=== PATIENT | male | born 1945 | race Two or more races ===

== ENCOUNTER 2018-10-01 10:07 | Emergency (ER) | payer MEDICARE, BC ==
[2018-10-01] MEDS ORDERED: Acetaminophen/HYDROcodone 325-5 MG Tab PO ONE (10:08)
[2018-10-01] MEDS ORDERED: Ketorolac 30 MG/ML SDV IM ONE (10:42)
[2018-10-01] MEDS ORDERED: Morphine 4 MG/ML Syringe IM ONE (10:43)
[2018-10-01] MEDS ORDERED: methylPREDNISolone Sodium Succinate 125 MG/2 ML SDV IM ONE (10:43)
--- NOTE | 2018-10-01 11:00 | EDM.PDOC ---
ED HPI GENERAL MEDICAL PROBLEM - General Stated Complaint: L SHOULDER PAIN Time Seen by Provider: 10/01/18 10:20 Source of Information: Reports: Patient History Limitations: Reports: No Limitations - History of Present Illness INITIAL COMMENTS - FREE TEXT/NARRATIVE: c/o L shoulder pain pain x 2m, saw ortho at [facility] and given an injection 3w ago which helped with pain for 1w, currently not taking anything for pain says he cannot take APAP d/t hep C has a swollen proximal L clavicle which he says is new says pain starts in the posterior shoulder just below the joint line and then wraps around the joint line anteriorly Left Shoulder Pain Score (Numeric/FACES): 10 - Related Data Allergies Allergy/AdvReac Type Severity Reaction Status Date / Time Penicillins Allergy Hives Verified 10/01/18 11:08 Home Meds: Home Meds Gabapentin [Neurontin] 100 mg PO TID #21 capsule 10/01/18 [Rx] ED ROS GENERAL - Review of Systems Review Of Systems: See Below Constitutional: Reports: No Symptoms HEENT: Reports: No Symptoms Respiratory: Reports: No Symptoms Cardiovascular: Reports: No Symptoms Endocrine: Reports: No Symptoms GI/Abdominal: Reports: No Symptoms : Reports: No Symptoms Musculoskeletal: Reports: Shoulder Pain Skin: Reports: No Symptoms Neurological: Reports: No Symptoms Psychiatric: Reports: No Symptoms Hematologic/Lymphatic: Reports: No Symptoms Immunologic: Reports: No Symptoms ED EXAM, UPPER BACK/NECK PAIN - Physical Exam Exam: See Below Exam Limited By: No Limitations General Appearance: Alert, WD/WN, Mild Distress Ears Exam: Normal External Exam, Normal Canal, Hearing Grossly Normal, Normal TMs Nose Exam: Normal Inspection, Normal Mucousa, No Blood Throat/Mouth Exam: Normal Inspection, Normal Lips, Normal Teeth, Normal Voice, No Airway Compromise Head Exam: Atraumatic, Normocephalic Neck Exam: Non-Tender, Full Range of Motion, Normal Alignment, Normal Inspection GI/Abdominal: Soft, Non-Tender Back Exam: Normal Inspection, Full Range of Motion, NT Extremities: Other (holding LUE at his side, not allowing ROM saying it hurts, no PT at L GH joint, NT at L AC joint, does have prominent bony thickening of proximal 1/3rd of L clavicle with a diameter of ~4 cm) 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 As Tested, No Motor/Sensory Deficits, Alert, Normal Mood/Affect, Oriented x 3 Psychiatric: Normal Affect, Normal Mood Skin Exam: Normal Color, Warm/Dry Lymphatic: No Adenopathy Course - Vital Signs Last Recorded V/S: Last Vital Signs Temp 36.8 C 10/01/18 13:31 Pulse 83 10/01/18 13:31 Resp 18 10/01/18 13:31 BP 149/84 H 10/01/18 13:31 Pulse Ox 95 10/01/18 13:31 - Orders/Labs/Meds Orders: Active Orders 24 hr Category Date Time Status Chest 2V [CR] Stat Exams 10/01/18 10:47 Ordered Chest Abdomen Pelvis w Cont [CT] Stat Exams 10/01/18 12:19 Ordered Clavicle Lt [CR] Stat Exams 10/01/18 10:46 Ordered Shoulder Comp Lt [CR] Stat Exams 10/01/18 10:46 Ordered Labs: Laboratory Tests 10/01/18 10/01/18 10/01/18 Range/Units 10:59 10:59 10:59 WBC 7.3 (4.5-12.0) X10-3/uL RBC 5.17 (4.30-5.75) x10(6)uL Hgb 15.5 (13.5-17.8) g/dL Hct 45.9 (30.0-51.3) % MCV 88.8 (80-96) fL MCH 30.0 (27.7-33.6) pg MCHC 33.8 (32.2-35.4) g/dL RDW 13.6 (11.5-15.5) % Plt Count 303 (125-369) X10(3)uL MPV 8.5 (7.4-10.4) fL Neut % (Auto) 70.2 (46-82) % Lymph % (Auto) 20.7 (13-37) % Jones % (Auto) 4.9 (4-12) % Eos % (Auto) 3 (1.0-5.0) % Baso % (Auto) 1 (0-2) % Neut # (Auto) 5.1 (1.6-8.3) # Lymph # (Auto) 1.5 (0.6-5.0) # Jones # (Auto) 0.4 (0.0-1.3) # Eos # (Auto) 0.2 (0.0-0.8) # Baso # (Auto) 0.1 (0.0-0.2) # Sodium 144 (135-145) mmol/L Potassium 4.9 (3.5-5.3) mmol/L Chloride 105 (100-110) mmol/L Carbon Dioxide 31 (21-32) mmol/L BUN 19 H (7-18) mg/dL Creatinine 0.9 (0.70-1.30) mg/dL Est Cr Clr Drug Dosing TNP Estimated GFR (MDRD) > 60 (>60) BUN/Creatinine Ratio 21.1 H (9-20) Glucose 89 (80-116) mg/dL Uric Acid 6.7 H (2.6-6.0) mg/dL Calcium 9.1 (8.6-10.2) mg/dL Total Bilirubin 0.7 (0.1-1.3) mg/dL AST 34 H (5-25) IU/L ALT 19 (12-36) U/L Alkaline Phosphatase 88 (56-112) IU/L C-Reactive Protein (0.5-0.9) mg/dL Total Protein 8.0 (6.0-8.0) g/dL Albumin 3.0 L (3.2-4.6) g/dL Globulin 5.0 g/dL Albumin/Globulin Ratio 0.6 Urine Color (YELLOW) Urine Appearance (CLEAR) Urine pH (5.0-6.5) Ur Specific [place] (1.010-1.025) Urine Protein (NEGATIVE) mg/dL Urine Glucose (UA) (NORMAL) mg/dL Urine Ketones (NEGATIVE) mg/dL Urine Occult Blood (NEGATIVE) Urine Nitrite (NEGATIVE) Urine Bilirubin (NEGATIVE) Urine Urobilinogen (NEGATIVE) mg/dL Ur Leukocyte Esterase (NEGATIVE) Urine RBC (0-5) Urine WBC (0-5) Ur Squamous Epith Cells (NS,R,O) Urine Bacteria (NS) 10/01/18 10/01/18 Range/Units 10:59 11:45 WBC (4.5-12.0) X10-3/uL RBC (4.30-5.75) x10(6)uL Hgb (13.5-17.8) g/dL Hct (30.0-51.3) % MCV (80-96) fL MCH (27.7-33.6) pg MCHC (32.2-35.4) g/dL RDW (11.5-15.5) % Plt Count (125-369) X10(3)uL MPV (7.4-10.4) fL Neut % (Auto) (46-82) % Lymph % (Auto) (13-37) % Jones % (Auto) (4-12) % Eos % (Auto) (1.0-5.0) % Baso % (Auto) (0-2) % Neut # (Auto) (1.6-8.3) # Lymph # (Auto) (0.6-5.0) # Jones # (Auto) (0.0-1.3) # Eos # (Auto) (0.0-0.8) # Baso # (Auto) (0.0-0.2) # Sodium (135-145) mmol/L Potassium (3.5-5.3) mmol/L Chloride (100-110) mmol/L Carbon Dioxide (21-32) mmol/L BUN (7-18) mg/dL Creatinine (0.70-1.30) mg/dL Est Cr Clr Drug Dosing Estimated GFR (MDRD) (>60) BUN/Creatinine Ratio (9-20) Glucose (80-116) mg/dL Uric Acid (2.6-6.0) mg/dL Calcium (8.6-10.2) mg/dL Total Bilirubin (0.1-1.3) mg/dL AST (5-25) IU/L ALT (12-36) U/L Alkaline Phosphatase (56-112) IU/L C-Reactive Protein 1.0 H (0.5-0.9) mg/dL Total Protein (6.0-8.0) g/dL Albumin (3.2-4.6) g/dL Globulin g/dL Albumin/Globulin Ratio Urine Color Yellow (YELLOW) Urine Appearance Clear (CLEAR) Urine pH 6.5 (5.0-6.5) Ur Specific [place] 1.015 (1.010-1.025) Urine Protein Negative (NEGATIVE) mg/dL Urine Glucose (UA) Normal (NORMAL) mg/dL Urine Ketones Negative (NEGATIVE) mg/dL Urine Occult Blood Negative (NEGATIVE) Urine Nitrite Negative (NEGATIVE) Urine Bilirubin Small H (NEGATIVE) Urine Urobilinogen 4 H (NEGATIVE) mg/dL Ur Leukocyte Esterase Negative (NEGATIVE) Urine RBC 0-5 (0-5) Urine WBC 10-20 H (0-5) Ur Squamous Epith Cells Few H (NS,R,O) Urine Bacteria Few H (NS) Meds: Medications Discontinued Medications Generic Name Dose Route Start Last Admin Trade Name Freq PRN Reason Stop Dose Admin Iopamidol 75 ml 10/01/18 13:32 10/01/18 13:55 Isovue-370 (76%) IV 10/01/18 13:33 70 ml ASDIRECTED ONE Administration Ketorolac Tromethamine 15 mg 10/01/18 10:42 10/01/18 11:08 Toradol IM 10/01/18 10:43 15 mg ONETIME ONE Administration Methylprednisolone Sodium Succinate 125 mg 10/01/18 10:43 10/01/18 11:08 Solu-Medrol IM 10/01/18 10:44 125 mg ONETIME ONE Administration Morphine Sulfate 4 mg 10/01/18 10:43 10/01/18 11:08 Morphine IM 10/01/18 10:44 4 mg ONETIME ONE Administration Morphine Sulfate Confirm 10/01/18 11:00 10/01/18 11:13 Morphine Sulfate Administered 10/01/18 11:01 Not Given Dose 4 mg .ROUTE .STK-MED ONE Morphine Sulfate 2 mg 10/01/18 13:35 10/01/18 13:40 Morphine IVPUSH 10/01/18 13:36 2 mg ONETIME ONE Administration - Re-Assessments/Exams Free Text/Narrative Re-Assessment/Exam: 10/01/18 12:45 CxR 2v with large RLL mass, L clavicle film shows proximal L clavicle not visible and replaced with a soft tissue mass, L shoulder XR shows no DJD and possible pathological fx of mid scapula will obtain a CT of chest/abd/pelvis with IV contrast no prior h/o CA smoked 3-4 pipes/d in the evening up until 2y ago, never smoked cigs 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, has lived 5y in [facility] in [place] living drives, peg took taxi here today, "I was in no shape to drive" has 4 girls and 4 boys, 4 are adopted, now scattered, closest lives in either [facility] or [facility], he is not sure which is closer 10/01/18 15:19 CT showing RLL lung CA with R hilar and mediastinal mets, there is a 4 x 2 cm proximal mass at clavicle c/w a met, small lucency at L1 c/w a met, no changes noted at L scapula peg pt likely has a met there feeling more comfortable now, lifting up his L arm d/w hospitalist Dr Miller who recommended working with primary pt reports he had RUL and RML lobe removed 20y ago at [facility] in [place] 10/01/18 15:28 d/w triage nurse Onelia at [facility] who pulled up pt's chart and sent a message to pt's PCP re his condition, she said that someone will call him tomorrow, pt currently laughing and talking with the RN Departure - Departure Time of Disposition: 15:30 Disposition: Home, Self-Care 01 Condition: Good Clinical Impression: Pain of left scapula, 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 For pain, take gabapentin 100 mg 1 capsule 3 times a day. For pain, take hydrocodone with acetaminophen 5/325 mg 1 tab 3 times a day as needed. No alcohol. Use sling when out of bed. Call the [facility] tomorrow afternoon if you have not heard from them by then. Return to ED if you are feeling worse. - My Orders Last 24 Hours: My Active Orders 10/01/18 10:46 Clavicle Lt [CR] Stat Shoulder Comp Lt [CR] Stat 10/01/18 10:47 Chest 2V [CR] Stat 10/01/18 12:19 Chest Abdomen Pelvis w Cont [CT] Stat - Assessment/Plan Last 24 Hours: My Active Orders 10/01/18 10:46 Clavicle Lt [CR] Stat Shoulder Comp Lt [CR] Stat 10/01/18 10:47 Chest 2V [CR] Stat 10/01/18 12:19 Chest Abdomen Pelvis w Cont [CT] Stat
[2018-10-01] MEDS ORDERED: Iopamidol 755 Mg/ML 75 ML Bottle IV ONE (13:32)
[2018-10-01] MEDS ORDERED: Morphine 2 MG/ML Syringe IVPUSH ONE (13:35)
[2018-10-01] MEDS ORDERED: Gabapentin 100 MG Cap PO ONE (15:35)
--- NOTE | 2018-10-02 11:20 | CR ---
INDICATION: Swollen proximal clavicle. LEFT CLAVICLE: Two frontal views of the clavicle were obtained and revealed no acute bone or joint abnormality. No definite blastic bony mass was identified. However, there is a low density abnormality in the medialmost portion of the clavicle, which could represent a lytic malignancy. No sclerotic rim was suggested. CT, MRI, or possibly nuclear bone imaging may be helpful for further evaluation. If CT is utilized, images without and with IV contrast are recommended. IMPRESSION: There is suggestion of a lytic lesion at the medial metaphysis of the clavicle extending into the shaft. It does not appear to be significantly expansile, but there is no sclerotic rim to suggest a benign structure. A lytic metastatic deposit is felt to be most likely with this appearance, but other etiology cannot be entirely excluded. MTDD
--- NOTE | 2018-10-02 11:23 | CR ---
INDICATION: Pain times 2 months. LEFT SHOULDER: Three views of the left shoulder revealed a very slightly expansile lytic lesion in the medial portion of the clavicle, encompassing the metaphysis and proximal shaft. A metastatic deposit would certainly be a consideration with this appearance. Minimal degenerative changes are noted at the glenohumeral joint. The shoulder was otherwise unremarkable. IMPRESSION: Lytic lesion medial clavicle suspicious for other than benign disease. MTDD
--- NOTE | 2018-10-02 11:36 | CR ---
INDICATION: Shoulder pain, rule out lung mass. CHEST: AP and lateral views of the chest were obtained 10/01/18 - no comparisons. There is infiltration in the mid lower portion of the lung - infrahilar and lateral to the right hilum with an appearance suggesting fairly significant degree of consolidating pneumonia. Other etiology such as neoplasia cannot be entirely excluded. There is also pleural effusion at the right lung base of small size, which may be on the basis of pleuritis or other etiology. Minimal left pleural effusion may also be present, since there is blunting of the left posterior sulcus. The left costophrenic angle was not fully included on the AP view. Flattened diaphragm leaves, prominent AP diameter, and hyperaeration all suggest COPD. Somewhat diminished bone density raises question of demineralization, possibly on the basis of osteomalacia or osteoporosis - correlate clinically. The heart did not appear enlarged. Evidence of previous median sternotomy is noted. The aorta is tortuous with calcification in the arch. IMPRESSION: 1. Dense infiltrative appearance in the right mid lung field anterior and posterior to the right hilum, extending infrahilar anteriorly. There may be lymphadenopathy in the right hilum, but this should be correlated clinically. Pneumonia and pleuritis could be present, although other than benign disease cannot be entirely excluded in this age group especially. Findings should be correlate clinically, therefore. 2. COPD. 3. ASD aorta, post median sternotomy change. 4. Possible demineralization and mild degenerative changes thoracic spine. 5. clavicle lesion commented on earlier. MTDD
== END 2018-10-01 16:12 | disposition home or self-care (01) ==
LOC: FB.ED 10:07
DX: M25.512 Pain in left shoulder (principal); C34.31 Malignant neoplasm of lower lobe, right bronchus or lung; C79.51 Secondary malignant neoplasm of bone; F17.290 Nicotine dependence, other tobacco product, uncomplicated; R59.0 Localized enlarged lymph nodes; Z88.0 Allergy status to penicillin
CPT/HCPCS: 36415; 71046; 71260; 73000; 73030; 74177; 80053; 81001; 84550; 85025; 86140; 96372; 96374; 99284; A9270; J1885; J2270; J2930; Q9967

== ENCOUNTER 2018-10-05 08:21 | Observation (INO) | payer MEDICARE, BC ==
[2018-10-05] MEDS ORDERED: Sodium Chloride 0.9% 1,000 ML IV ONE (09:05)
[2018-10-05] MEDS ORDERED: Morphine 4 MG/ML Syringe IVPUSH ONE (09:06)
--- NOTE | 2018-10-05 09:10 | EDM.PDOC ---
ED HPI GENERAL MEDICAL PROBLEM - General Chief Complaint: General Stated Complaint: PAIN Time Seen by Provider: 10/05/18 08:23 Source of Information: Reports: Patient History Limitations: Reports: Physical Impairment (tpo weak to ambulate) - History of Present Illness INITIAL COMMENTS - FREE TEXT/NARRATIVE: 73 y.o.w.m with a distant H/O Non small cell CA. S/p partial pneumectomy, COPD, was seen in this ED on 10/01/2018 due to a mass and severe pain at the Pt's left shoulder and pain at his left shoulder as well. Pt was advised to be seen by an oncologist. Today, the patient was on his way to [facility], was confused on the way where to go etc. He came back to our ED to get help. No family is present. Pt's main issue was: Anxiety and severe left upper ant chest wall pain, where he noticed a mass. Pt lost 40-50 pounds of weight in the last few month, had poor po intake and is too week to ambulate. Pt feels nauseated as well. No trauma. No other acute medical issues. BP 137/64 Pulse ox 20 Pulse ox 97% on RA. Puls 101, Temp 36.7 Onset Date: 10/01/18 Onset Time: 07:00 Duration: Day(s):, Week(s):, Getting Worse Location: Reports: Chest, Back Quality: Reports: Ache, Burning, Dull, Stabbing, Throbbing Severity: Moderate Improves with: Reports: Medication, Rest Worsens with: Reports: Movement Context: Reports: Other (H/O metastatic lung CA, non small cell) Associated Symptoms: Reports: Confusion, Chest Pain, Loss of Appetite, Weakness , Other (weight loss) L upper chest Pain Score (Numeric/FACES): 6 - Related Data Allergies Allergy/AdvReac Type Severity Reaction Status Date / Time Penicillins Allergy Hives Verified 10/05/18 08:30 Tetanus Vaccines and Toxoid Allergy Cannot Verified 10/05/18 08:46 Remember Home Meds: Home Meds Albuterol [Ventolin HFA] 2 puff QID 10/05/18 [History] Hydrocodone/Acetaminophen [Hydrocodon-Acetaminophen 5-325] 0.5 tab DAILY [History] Pregabalin [Lyrica] 200 mg BID 10/05/18 [History] Past Medical History HEENT History: Reports: Impaired Vision Respiratory History: Reports: Asthma, COPD Other Respiratory History: Hx lung CA Genitourinary History: Reports: Renal Calculus Musculoskeletal History: Reports: Fracture Other Musculoskeletal History: Hx L fx hand, L fx elbow Neurological History: Reports: Neuropathy, Peripheral, Other (See Below) Other Neuro History: ataxia Oncologic (Cancer) History: Reports: Bone, Lung - Infectious Disease History Infectious Disease History: Reports: Chicken Pox, Measles, Mumps - Past Surgical History Head Surgeries/Procedures: Reports: None HEENT Surgical History: Reports: Cataract Surgery, Tonsillectomy Other HEENT Surgeries/Procedures: bilat cataract Respiratory Surgical History: Reports: Other (See Below) Other Respiratory Surgeries/Procedures: R mid & upper lobectomy Musculoskeletal Surgical History: Reports: None Oncologic Surgical History: Reports: Other (See Below) Other Oncologic Surgeries/Procedures: R mid & upper lobectomy Social & Family History - Family History Family Medical History: Noncontributory - Tobacco Use Smoking Status *Q: Former Smoker Years of Tobacco use: 10 Used Tobacco, but Quit: Yes Month/Year Tobacco Last Used: jul - Caffeine Use Caffeine Use: Reports: Coffee, Tea - Recreational Drug Use Recreational Drug Use: No ED ROS GENERAL - Review of Systems Review Of Systems: See Below Constitutional: Reports: Malaise, Weakness, Decreased Appetite, Weight Loss HEENT: Reports: No Symptoms Respiratory: Reports: No Symptoms (at rest) Cardiovascular: Reports: No Symptoms Endocrine: Reports: No Symptoms GI/Abdominal: Reports: No Symptoms : Reports: No Symptoms Musculoskeletal: Reports: Neck Pain, Shoulder Pain Skin: Reports: No Symptoms Neurological: Reports: No Symptoms Psychiatric: Reports: No Symptoms Hematologic/Lymphatic: Reports: No Symptoms Immunologic: Reports: No Symptoms ED EXAM, GENERAL - Physical Exam Exam: See Below Exam Limited By: No Limitations General Appearance: Alert, Moderate Distress, Cachetic Eye Exam: Bilateral Eye: Normal Inspection Ears: Normal External Exam, Normal Canal Ear Exam: Bilateral Ear: Auricle Normal Nose: Normal Inspection, Normal Mucosa, No Blood Throat/Mouth: Normal Lips, Normal Voice, No Airway Compromise, Other (poor dentition) Head: Atraumatic, Normocephalic Neck: Normal Inspection, Supple, Non-Tender, Full Range of Motion Respiratory/Chest: No Respiratory Distress, No Accessory Muscle Use, Decreased Breath Sounds (left lung) Cardiovascular: Normal Peripheral Pulses Peripheral Pulses: 1+: Radial (R) GI/Abdominal: Normal Bowel Sounds, Soft, Non-Tender, No Organomegaly, No Abnormal Bruit, No Mass, Pelvis Stable (Male) Exam: Deferred Rectal (Males) Exam: Deferred Back Exam: Normal Inspection, Full Range of Motion Extremities: Normal Inspection, Normal Range of Motion, Non-Tender Neurological: Alert, Oriented, CN II-XII Intact, Normal Cognition, Normal Gait Psychiatric: Normal Affect, Normal Mood Skin Exam: Warm, Dry, Intact, Normal Color, No Rash Lymphatic: Adenopathy (vs Mass left clavicula) Course - Vital Signs Text/Narrative:: 73 y.o.w.m with a distant H/O Non small cell CA. S/p partial pneumectomy, COPD, was seen in this ED on 10/01/2018 due to a mass and severe pain at the Pt's left shoulder and pain at his left shoulder as well. Pt was advised to be seen by an oncologist. Today, the patient was on his way to [facility], was confused on the way where to go etc. He came back to our ED to get help. No family is present. Pt's main issue was: Anxiety and severe left upper ant chest wall pain, where he noticed a mass. Pt lost 40-50 pounds of weight in the last few month, had poor po intake and is too week to ambulate. Pt feels nauseated as well. No trauma. No other acute medical issues. BP 137/64 Pulse ox 20 Pulse ox 97% on RA. Pulse 101, Temp 36.7 PE: Cachectic 73 y.o.w.m with H/O lung CA, Mass left clavicula, weakness and Wt loss Imaging from 10/01/2018: 1) Lytic lesion left Clavicula, 2) Infiltrate right mid lung extending infrahilar anteriorly 3) COPD Labs: CBC nl BMP nl except: BUN was 24 UA is pending Impression: H/O Non small cell CA, Cachexia, Weakness, Mass left clavicula, Dehydration. Tx: NS bolus, Morphine, Zofran Reexam: Improved pain from 10/10 to 2/10 at his left clavicular mass. 9.22 am Consultation: Dr. Potter, Hospitalist, [facility]: Will call back after he checked the bed situation 9.45 am: [facility] Pt Transfer center called back: There no beds open today, however, tomorrow, the [facility] may have beds open. The Patient [place] Transfer center needs to be called tomorrow at [phone]. [employer] needs to page [phone] to reach the transfer center before the pt is getting transferred if transfer is still necessary. 10.00 am Consultation: Dr. Miller, Hospitalist: Accepted the pt for OBS admission Plan: Admit for M/S OBS Last Recorded V/S: Last Vital Signs Temp 36.9 C 10/05/18 08:23 Pulse 101 H 10/05/18 08:23 Resp 20 10/05/18 08:23 BP 137/64 10/05/18 08:23 Pulse Ox 96 10/05/18 08:23 - Orders/Labs/Meds Orders: Active Orders 24 hr Category Date Time Status Patient Status [ADT] Routine ADT 10/05/18 10:01 Active Oxygen Therapy [RC] PRN Care 10/05/18 10:01 Active Up With Assistance [RC] ASDIRECTED Care 10/05/18 10:00 Active VTE/DVT Education [RC] Per Unit Routine Care 10/05/18 10:01 Active Vital Signs [RC] Q4H Care 10/05/18 10:01 Active Regular Diet [DIET] Diet 10/05/18 Breakfast Ordered UA W/MICROSCOPIC [URIN] Stat Lab 10/05/18 11:01 Ordered Sodium Chloride 0.9% [Saline Flush] Med 10/05/18 10:00 Active 10 ml FLUSH ASDIRECTED PRN Peripheral IV Insertion Adult [OM.PC] Routine Oth 10/05/18 10:00 Ordered Resuscitation Status Routine Resus Stat 10/05/18 10:00 Ordered Medication Orders Sodium Chloride (Saline Flush) 10 ml FLUSH ASDIRECTED PRN PRN Reason: Keep Vein Open Labs: Laboratory Tests 10/05/18 10/05/18 10/05/18 Range/Units 09:12 09:12 09:12 WBC 8.2 (4.5-12.0) X10-3/uL RBC 5.00 (4.30-5.75) x10(6)uL Hgb 15.1 (13.5-17.8) g/dL Hct 44.2 (30.0-51.3) % MCV 88.3 (80-96) fL MCH 30.2 (27.7-33.6) pg MCHC 34.2 (32.2-35.4) g/dL RDW 13.4 (11.5-15.5) % Plt Count 295 (125-369) X10(3)uL MPV 8.8 (7.4-10.4) fL Neut % (Auto) 73.0 (46-82) % Lymph % (Auto) 13.3 (13-37) % Lanier % (Auto) 9.7 (4-12) % Eos % (Auto) 2 (1.0-5.0) % Baso % (Auto) 2 (0-2) % Neut # (Auto) 6.0 (1.6-8.3) # Lymph # (Auto) 1.1 (0.6-5.0) # Lanier # (Auto) 0.8 (0.0-1.3) # Eos # (Auto) 0.1 (0.0-0.8) # Baso # (Auto) 0.2 (0.0-0.2) # PT 11.3 H (8.7-11.1) INR 1.16 H (0.89-1.13) Sodium 140 (135-145) mmol/L Potassium 4.0 (3.5-5.3) mmol/L Chloride 102 (100-110) mmol/L Carbon Dioxide 27 (21-32) mmol/L BUN 24 H (7-18) mg/dL Creatinine 0.8 (0.70-1.30) mg/dL Est Cr Clr Drug Dosing 76.07 mL/min Estimated GFR (MDRD) > 60 (>60) BUN/Creatinine Ratio 30.0 H (9-20) Glucose 86 (80-116) mg/dL Calcium 9.1 (8.6-10.2) mg/dL Meds: Medications Generic Name Dose Route Start Last Admin Trade Name Freq PRN Reason Stop Dose Admin Sodium Chloride 10 ml 10/05/18 10:00 Saline Flush FLUSH ASDIRECTED PRN Keep Vein Open Discontinued Medications Generic Name Dose Route Start Last Admin Trade Name Freq PRN Reason Stop Dose Admin Sodium Chloride 1,000 mls @ 999 mls/hr 10/05/18 09:05 10/05/18 09:20 Normal Saline IV 10/05/18 10:05 999 mls/hr .BOLUS ONE Administration Morphine Sulfate 4 mg 10/05/18 09:06 10/05/18 09:20 Morphine IVPUSH 10/05/18 09:07 4 mg ONETIME ONE Administration Morphine Sulfate Confirm 10/05/18 09:10 10/05/18 09:23 Morphine Sulfate Administered 10/05/18 09:11 Not Given Dose 4 mg .ROUTE .STK-MED ONE Ondansetron HCl 8 mg 10/05/18 09:12 10/05/18 09:30 Zofran IVPUSH 10/05/18 09:13 8 mg ONETIME ONE Administration Pantoprazole Sodium 40 mg 10/05/18 09:12 10/05/18 09:34 Protonix Iv IVPUSH 10/05/18 09:13 40 mg ONETIME ONE Administration Departure - Departure Time of Disposition: 10:25 Disposition: Refer to Observation Condition: Fair Clinical Impression: Weakness, Lung cancer - Discharge Information Referrals: Mitch Cox MD [Primary Care Provider] - Forms: ED Department Discharge - My Orders Last 24 Hours: My Active Orders 10/05/18 10:00 Up With Assistance [RC] ASDIRECTED Sodium Chloride 0.9% [Saline Flush] 10 ml FLUSH ASDIRECTED PRN Peripheral IV Insertion Adult [OM.PC] Routine Resuscitation Status Routine 10/05/18 10:01 Patient Status [ADT] Routine Oxygen Therapy [RC] PRN VTE/DVT Education [RC] Per Unit Routine Vital Signs [RC] Q4H 10/05/18 11:01 UA W/MICROSCOPIC [URIN] Stat 10/05/18 Breakfast Regular Diet [DIET] - Assessment/Plan Last 24 Hours: My Active Orders 10/05/18 10:00 Up With Assistance [RC] ASDIRECTED Sodium Chloride 0.9% [Saline Flush] 10 ml FLUSH ASDIRECTED PRN Peripheral IV Insertion Adult [OM.PC] Routine Resuscitation Status Routine 10/05/18 10:01 Patient Status [ADT] Routine Oxygen Therapy [RC] PRN VTE/DVT Education [RC] Per Unit Routine Vital Signs [RC] Q4H 10/05/18 11:01 UA W/MICROSCOPIC [URIN] Stat 10/05/18 Breakfast Regular Diet [DIET]
[2018-10-05] MEDS ORDERED: Ondansetron 4 MG/2 ML SDV IVPUSH ONE (09:12)
[2018-10-05] MEDS ORDERED: Pantoprazole 40 MG Vial IVPUSH ONE (09:12)
[2018-10-05] MEDS ORDERED: Sodium Chloride 0.9% 10 ML Syringe FLUSH PRN (10:00)
[2018-10-05] MEDS: Morphine 15 MG Tab.ER PO SCH ×2 (11:45→21:14)
--- NOTE | 2018-10-05 14:01 | HP ---
ADMISSION DATE: 10/05/2018 REASON FOR VISIT: Troubling right lung mass, left clavicle pain. HISTORY OF PRESENT ILLNESS: Marco A Kenney is a 73-year-old , but recently engaged male from [place], who was seen at [facility] and admitted to the hospital for treatment. He was seen on the in the ER. Presented with complicated issues of 40- pound weight loss, anorexia, and left proximal clavicle pain. Radiographs revealed a right lung mass, left clavicle lytic lesion, and CT confirmation highly suspicious for lung carcinoma. Elected to drive to the [facility] today, got there about half way, just had a sense of a breakdown emotionally, unable to complete the trip, came home, went to his home, called a cab, and came up to the ER. Dr. Valerio, ER physician, has spoken with the staff at the [facility]. There have no rooms available today, but they agree to see him tomorrow. He has been on Lyrica 200 mg b.i.d. for some neuropathic pain and hydrocodone. Primary issue is pain over the left clavicle, quite significant in nature. Troublesome shortness of breath and no hemoptysis. ALLERGIES: Allergic to penicillin and tetanus toxoid. PAST MEDICAL HISTORY: Significant for remote appendectomy. He has had a couple of hand fractures and right elbow fracture. No other complicating fractures, chronic illnesses, or usual childhood diseases. 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 Moved from [place] to [place] 4 years ago. Four children, 2 boys, 2 girls. Four grandchildren, 2 boys, 2 girls. Quit smoking a couple of years ago. Nil alcohol consumption or illicit drug use. HISTORY: [employer] for 6 years, including [place]. REVIEW OF SYSTEMS: Please see HPI. HEENT: Sees well, hears well, in poor dentition. ABDOMEN: Bowels have been fine. Little reluctant, but urine has been fine. LUNGS: Mild shortness of breath, but no hemoptysis. EXTREMITIES: Neuropathic lower extremity pain. SKIN: No skin rash. PHYSICAL EXAMINATION: VITAL SIGNS: 63 kg, 36.9, 102 is the pulse, 137/68, O2 saturation 96%. GENERAL: A gentleman who appears older than state age, obvious cachectic. Soft spoken. HEENT: Reveals funduscopic benign. Conjunctivae clear. Bright tympanic membranes. Clear nasal discharge. Mouth and oropharynx clear. Poor dentition. Tongue midline. Good gag reflex. NECK: Benign. Thyroid small. CHEST: Increased AP diameter. Prolonged expiratory phase. A Palpably tender fullness at the sternoclavicular joint, right clavicle. HEART: Heart sounds distant. ABDOMEN: Right lower quadrant appendectomy scar. No hepatosplenomegaly. AND RECTAL: Deferred. EXTREMITIES: Well perfused. Venous stasis changes. LABORATORY STUDIES: White count 8,200, hemoglobin 15.1, normal differential. INR 1.16, BUN 24, creatinine 0.8. GFR greater than 60. Radiographs from 10/01/2018 reviewed. ASSESSMENT: Clinical decline, lung cancer suspected with focal metastases, left collarbone. PLAN: We will admit for pain control. MS Contin, Percocet, analgesics, and appropriate treatment. [facility]. /[id number] RED/DENIZ
[2018-10-05] MEDS: Acetaminophen/oxyCODONE 325-5 MG Tab PO PRN ×2 (16:15→21:49)
[2018-10-05] MEDS: Albuterol 0.083% 2.5 MG/3 ML Neb Soln NEB PRN (21:15)
[2018-10-05] MEDS: Pregabalin 100 MG Cap PO SCH (21:15)
[2018-10-05] MEDS ORDERED: Pregabalin 100 MG Cap ONE (21:20)
[2018-10-06] MEDS: Acetaminophen/oxyCODONE 325-5 MG Tab PO PRN ×2 (04:00→12:14)
[2018-10-06] MEDS: Albuterol 0.083% 2.5 MG/3 ML Neb Soln NEB PRN ×2 (04:00→09:51)
--- NOTE | 2018-10-06 07:51 | HP ---
ADMISSION DATE: 10/05/2018 ADDENDUM: Mr. Kenney shared, after his initial observation, that he had previous lung cancer in about 1999. He underwent a right thoracotomy with good outcome. Not likely a recurrence, likely a new primary. /[id number] RED/DENIZ
[2018-10-06] MEDS: Pregabalin 100 MG Cap PO SCH (09:41)
[2018-10-06] MEDS: Morphine 15 MG Tab.ER PO SCH (09:41)
--- NOTE | 2018-10-06 11:09 | PCM.PN ---
- General Info Date of Service: 10/06/18 Subjective Update: Patient still having severe pain left clavicle. This was shortness of breath and wheezing, complains of feeling very weak. Functional Status: Reports: Tolerating Diet - Review of Systems General: Reports: Weakness HEENT: Reports: No Symptoms Pulmonary: Reports: Shortness of Breath, Wheezing Cardiovascular: Reports: Dyspnea on Exertion Gastrointestinal: Reports: No Symptoms - Patient Data Vitals - Most Recent: Last Vital Signs Temp 98.2 F 10/06/18 00:00 Pulse 93 10/06/18 00:00 Resp 24 H 10/06/18 00:00 BP 105/67 10/06/18 00:00 Pulse Ox 76 L 10/06/18 04:02 Weight - Most Recent: 57.379 kg Lab Results Last 24 Hours: Laboratory Results - last 24 hr 10/06/18 Range/Units 04:20 Urine Color Yellow (YELLOW) Urine Appearance Clear (CLEAR) Urine pH 5.0 (5.0-6.5) Ur Specific Duncan 1.025 (1.010-1.025) Urine Protein Negative (NEGATIVE) mg/dL Urine Glucose (UA) Normal (NORMAL) mg/dL Urine Ketones 15 H (NEGATIVE) mg/dL Urine Occult Blood Moderate H (NEGATIVE) Urine Nitrite Negative (NEGATIVE) Urine Bilirubin Small H (NEGATIVE) Urine Urobilinogen 8 H (NEGATIVE) mg/dL Ur Leukocyte Esterase Negative (NEGATIVE) Urine RBC 20-30 H (0-5) Urine WBC 0-5 (0-5) Ur Squamous Epith Cells Few H (NS,R,O) Urine Bacteria Few H (NS) Urine Mucus Moderate H (NS) Med Orders - Current: Current Medications Albuterol (Proventil Neb Soln) 2.5 mg NEB Q4H PRN PRN Reason: Dyspnea Last Admin: 10/06/18 09:51 Dose: 2.5 mg Morphine Sulfate (Ms Contin) 15 mg PO BID [facility] Last Admin: 10/06/18 09:41 Dose: 15 mg Oxycodone/Acetaminophen (Percocet 325-5 Mg) 1 tab PO Q4H PRN PRN Reason: Pain (moderate 4-6) Last Admin: 10/06/18 04:00 Dose: 1 tab Pregabalin (Lyrica) 200 mg PO BID [facility] Last Admin: 10/06/18 09:41 Dose: 200 mg Sodium Chloride (Saline Flush) 10 ml FLUSH ASDIRECTED PRN PRN Reason: Keep Vein Open Last Admin: 10/05/18 16:18 Dose: 10 ml Discontinued Medications Sodium Chloride (Normal Saline) 1,000 mls @ 999 mls/hr IV .BOLUS ONE Stop: 10/05/18 10:05 Last Admin: 10/05/18 09:20 Dose: 999 mls/hr Morphine Sulfate (Morphine) 4 mg IVPUSH ONETIME ONE Stop: 10/05/18 09:07 Last Admin: 10/05/18 09:20 Dose: 4 mg Morphine Sulfate (Morphine Sulfate) Confirm Administered Dose 4 mg .ROUTE .STK- MED ONE Stop: 10/05/18 09:11 Last Admin: 10/05/18 09:23 Dose: Not Given Ondansetron HCl (Zofran) 8 mg IVPUSH ONETIME ONE Stop: 10/05/18 09:13 Last Admin: 10/05/18 09:30 Dose: 8 mg Pantoprazole Sodium (Protonix Iv) 40 mg IVPUSH ONETIME ONE Stop: 10/05/18 09:13 Last Admin: 10/05/18 09:34 Dose: 40 mg Pregabalin (Lyrica) Confirm Administered Dose 100 mg .ROUTE .STK-MED ONE Stop: 10/05/18 21:21 Last Admin: 10/05/18 21:49 Dose: Not Given - Exam Quality Assessment: Supplemental Oxygen General: Alert HEENT: Pupils Equal Neck: Supple Lungs: Crackles Cardiovascular: Regular Rate GI/Abdominal Exam: Normal Bowel Sounds - Problem List & Annotations (1) COPD (chronic obstructive pulmonary disease) SNOMED Code(s): 85177554 Code(s): J44.9 - CHRONIC OBSTRUCTIVE PULMONARY DISEASE, UNSPECIFIED Status : Acute Current Visit: Yes Qualifiers: COPD type: COPD with acute exacerbation Qualified Code(s): J44.1 - Chronic obstructive pulmonary disease with (acute) exacerbation (2) Weakness SNOMED Code(s): 71947865 Code(s): R53.1 - WEAKNESS Status: Acute Current Visit: Yes (3) Bony metastasis Status: Acute Current Visit: No (4) Mediastinal lymphadenopathy SNOMED Code(s): 94790776 Code(s): R59.0 - LOCALIZED ENLARGED LYMPH NODES Status: Acute Current Visit: No - Problem List Review Problem List Initiated/Reviewed/Updated: Yes - Plan Plan:: I called [place]-will send him to [facility].
--- NOTE | 2018-10-06 11:43 | DISCH ---
DISCHARGE DATE: 10/06/2018 REASON FOR ADMISSION: 1. Pain, left shoulder. 2. Anxiety. 3. Pulmonary mass. 4. COPD exacerbation. DISCHARGE DIAGNOSES: 1. Pain, left shoulder. 2. Anxiety. 3. Pulmonary mass. 4. Chronic obstructive pulmonary disease exacerbation. BRIEF HISTORY: A 73-year-old male, who has COPD, but not oxygen-dependent. Came into the ER with weight loss, chest pain, and pain on the left clavicle few days ago, was diagnosed with the mass possibly with mets to the clavicle. He was supposed to go to [facility], but came to the ER with worsening pain, was admitted for pain control and oxygen supplementation. This morning, was found to be still quite short of breath on any ambulation or even speech. I elected to send him to [facility] for further treatment and Dr. Jackson accepted him. I spent less than 35 minutes in the discharge of the patient. /[id number] CONNIE/DENIZ
== END 2018-10-06 16:10 | disposition critical access hospital (66) ==
LOC: FB.ED 08:21 → FB.MS 10:01
PROVIDERS: ADMIT Family Medicine; ATTEND Family Medicine
DX: M25.512 Pain in left shoulder (principal); J44.1 Chronic obstructive pulmonary disease with (acute) exacerbation; R91.8 Other nonspecific abnormal finding of lung field; F41.9 Anxiety disorder, unspecified; R59.0 Localized enlarged lymph nodes; C80.1 Malignant (primary) neoplasm, unspecified; C79.51 Secondary malignant neoplasm of bone; Z85.118 Personal history of other malignant neoplasm of bronchus and lung; Z90.2 Acquired absence of lung [part of]; Z88.0 Allergy status to penicillin; Z88.7 Allergy status to serum and vaccine; Z87.891 Personal history of nicotine dependence
CPT/HCPCS: 36415; 80048; 81001; 85025; 85610; 94640; 96361; 96374; 96375; 99284; A9270; C9113; J2270; J2405; J7030; G0378